=== PATIENT | female | born 1965 | race Caucasian/White ===

== ENCOUNTER 2021-03-17 19:35 | Emergency (ER) | payer MEDICAID ==
[~2021-03-17] VITALS: Ht 162.6 cm; Wt 73.0 kg
[2021-03-17] MEDS ORDERED: HYDROCODONE/ACETAMINOPHEN 5/325MG TABLET PO ONE (20:15)
[2021-03-17] MEDS ORDERED: ACET-2708 MT (21:36)
[2021-03-17] MEDS ORDERED: IBUP-2029 MT (21:36)
[2021-03-17 23:05] VITALS: BP 120/69
== END 2021-03-17 23:36 | disposition home or self-care (01) ==
LOC: ER 19:35
DX: M23.91 Unspecified internal derangement of right knee (principal); M25.571 Pain in right ankle and joints of right foot; W01.0XXA Fall on same level from slipping, tripping and stumbling without subsequent striking against object, initial encounter; Y93.89 Activity, other specified; Y92.89 Other specified places as the place of occurrence of the external cause; R03.0 Elevated blood-pressure reading, without diagnosis of hypertension
CPT/HCPCS: 29505; 73560; 73610; 99284